=== PATIENT | male | born 1980 | race Caucasian/White ===

== ENCOUNTER 2017-02-18 20:49 | Emergency (ER) | payer MEDICARE, SELFPAY ==
--- NOTE | 2017-02-19 07:09 | ER ---
ADMIT: 02/18/2017 RM/LOC: ER [facility] MR#: [id number] [facility] [place], [place] [address] [address] [place] [address] Emergency Room Report SEX: M AGE: 36 : 1980 DATE: 02/18/2017 The patient is a 36-year-old male with prior history of depression and migraines, comes in with police escort for the [facility] for suicidal ideation. Plan is to jump into traffic. Exam remarkable for nontoxic, cooperative male, hypomanic appearing. Normal tox screen, except for marijuana. Normal TSH, chemistries, CBC. Discussed case with Kevin Myers, who agreed to accept, transported by Police Department. Dewayne Zurita MD/ ml JOB #: [id number] CC: Dewayne Zurita MD, Attending Physician Samira Schaefer MD, Family Physician . [facility]
--- NOTE | 2017-02-19 16:01 | NUR ---
Received SAD person referral. Pt was EPC'd to Kevin Myers.
== END 2017-02-18 22:00 | disposition home or self-care (01) ==
LOC: ER 20:49
DX: F32.9 Major depressive disorder, single episode, unspecified (principal)